=== PATIENT | male | born 1960 | race Caucasian/White ===

== ENCOUNTER 2024-11-11 17:11 | Emergency (ER) | payer MEDICAID, SELFPAY ==
[2024-11-11 17:13] VITALS: BP 171/89; BP 186/100; PULSE 75; RESP 18; TEMP 36.7; O2SAT 99; BMI 18.6
--- NOTE | 2024-11-11 17:57 | EDNOTE_ITS ---
ED Medical Clearance RME/HPI General Chief complaint: Medical Clearance Stated complaint: MEDICAL CLEARANCE Time Seen by Provider: 11/11/24 17:52 Arrival date/time: 11/11/24 17:11 RME / HPI RME / HPI Narrative: DR. CARRILLO MAIN ED EVALUATION: 64-year-old male with history of hypertension, methamphetamine and marijuana use presents to the Emergency Department for detention clearance by police for an abdominal hernia. Patient reports having a hernia for a couple years and has not been evaluated by a surgeon. He denies abdominal pain, nausea, or vomiting. Patient is homeless. Allergy to penicillins. Related Information Previous Rx's ?Medication ?Instructions ?Recorded lisinopril 10 mg tablet 10 mg PO QDAY #30 tabs 04/05 omeprazole 20 mg capsule,delayed 20 mg PO QDAY #20 cap s 06/26/22 release Allergies Allergy/AdvReac Type Severity Reaction Status Date / Time Penicillins Allergy Severe Swelling Verified 03/08/22 15:20 of Lip/Tongue/Throat Review of Systems Review of Systems Systems Reviewed: All systems reviewed, normal except as documented Past Medical History Past Medical History NEUROLOGIC: Positive Neurological Disorders CARDIAC: Positive Myocardial Infarction and Hypertension RESPIRATORY: Positive Chronic Obstructive Pulmonary Disease (COPD) and Asthma OTHER HISTORY: Positive Chicken Pox Surgical History SURGICAL: Positive Abdominal Surgery and Bowel Surgery Social History SMOKING STATUS: Current some day smoker SECOND HAND EXPOSURE: No SUBSTANCE USE: marijuana and methamphetamine 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 ED Exam Narrative Physical exam: GENERAL APPEARANCE: alert and oriented x 4, well-developed, well-nourished, no acute distress, sitting up with hands cuffed to the front VITALS: All vitals were reviewed and the pulse ox is 99% on room air, which is normal according to my interpretation. HEENT: Normocephalic, atraumatic; pupils equal, round, reactive to light; EOMI; mucous membranes pink, moist; oropharynx clear NECK: Supple LUNGS: CTABL; no wheezes, no rales, no rhonchi HEART: Regular rate, regular rhythm; normal S1, S2; no murmurs ABDOMEN: non distended; normal BS; soft, ventral hernia noted BACK: no CVA tenderness EXTREMITIES: atraumatic; no edema NEUROLOGIC: awake; alert and oriented x4; cranial nerves II-XII grossly intact; no focal sensory or motor deficits PSYCHIATRIC: appropriate mood and affect SKIN: warm, dry, normal color; no rashes Course Quality Measures none Vital Signs Vital signs: Vital Signs Temperature 98.0 F 11/11/24 17:13 Pulse Rate 75 11/11/24 17:13 Respiratory Rate 18 11/11/24 17:13 Blood Pressure 186/100 H 11/11/24 17:13 Pulse Oximetry (%) 99 11/11/24 17:13 Oxygen Delivery Method Room Air 11/11/24 17:13 Medical Clearance MDM Narrative MDM Narrative:: Sunita Camarena am scribing for and in the presence of Dr. Carrillo. Patient data External records reviewed:: [facility] previous records and EMS form Clinical information provided by:: patient, EMS and law enforcement Social determinants that could affect healthcare access:: substance use (Met hamphetamine, marijuana) Patient has the following chronic illnesses:: hypertension, methamphetamine and marijuana use How is presenting disease/condition affected by chronic disease/condition?: uneffected by Evaluation data The following diagnostics were reviewed and interpreted by me:: other (specify) (none) Lab and/or radiology exams considered but not ordered:: none Interpretation Summary: N/A Medications / Prescriptions Medications or Prescriptions considered but not ordered:: none Medication administrations:: see above if any Consultations Consultation(s) initiated? (list below): No Diagnosis Medical Clearance Differential Diagnosis: other (detention clearance, inguinal hernia, ventral hernia, incarcerated hernia) Most likely diagnosis given after review of the tests above:: Ventral hernia Medical clearance for incarceration Admission Indicated Admission indicated?: not indicated Admission Request Was there a request for admission?: No Disposition Plan Disposition Plan: Discharge (to detention) Discharge Attestation Discharge Attestation: The patient and all family members were given an opportunity to ask questions and understood the discharge instructions. Discharge instructions specifically effects, indications for sooner follow up or return to the emergency department, and the expected course of current diagnosis. Patient condition: Stable Discharge Plan Plan Patient Disposition: HOME (Self Care) Discharge Disposition comment: Okay to book Prescriptions/Referrals Prescriptions/Med Rec: No Action lisinopril 10 mg tablet 10 mg PO QDAY Qty: 30 0RF omeprazole 20 mg capsule,delayed release(DR/EC) 20 mg PO QDAY Qty: 20 0RF Referrals: Jolly,Ahmad, MD [Physician] - Problem List Clinical Impression: Ventral hernia, Medical clearance for incarceration Patient/Caregiver Discharge Instructions Education Materials: ED Hernia (Adult) Additional Instructions: May follow up electively with surgeon for evaluation and treatment. Call office for appointment. Print Language: Cuban Stand Alone Forms: Fani Award Info., Patient Portal Info Letter
== END 2024-11-11 18:09 | disposition home or self-care (01) ==
LOC: SERX 18:04
PROVIDERS: Emergency Provider Emergency Medicine
DX: Z02.89 Encounter for other administrative examinations (principal); K43.9 Ventral hernia without obstruction or gangrene
CPT/HCPCS: 99282

== ENCOUNTER 2025-01-14 04:10 | Inpatient (IN) | payer MEDICAID, SELFPAY ==
[2025-01-14] VITALS (22 sets, daily range): BP systolic 112–185; BP diastolic 65–103; PULSE 60–103; RESP 13–99; TEMP 36–37.5; O2SAT 90–100; BMI 16.7; BMI 17.4
--- NOTE | 2025-01-14 04:11 | EKG_ITS ---
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
--- NOTE | 2025-01-14 04:13 | PD.ASTHM ---
ED Asthma RME/HPI General Chief Complaint: Shortness of Breath/Dyspnea Stated Complaint: SOB Time Seen by Provider: 01/14/25 04:13 Arrival date/time: 01/14/25 04:10 RME / HPI RME / HPI Narrative: DR. STEELE MAIN ED EVALUATION: Patient with longstanding Hx of Asthma presents with progress diff breathing approximately 1-2 days notes preceding URI-like symptoms. No definite fever, chills, vomiting, or diarrhea. Patient became progressively dyspneic and contacted medics who transported patient for evaluation. O2 sats in the low 90th percentile range, although found to be in mild to moderate respiratory distress. Patient was administered breathing treatment en route with improvement and increased O2 sat to the high 90th percentile range. Patient also markedly hypertensive. PMH: Asthma, ? CHF, [place], HTN PSH: Non-contributory Allergies: Penicillins Social: Positive marijuana, methamphetamine, and tobacco use, Related Data Previous Rx's ?Medication ?Instructions ?Recorded lisinopril 10 mg tablet 10 mg PO QDAY #30 tabs 04/05/22 omeprazole 20 mg capsule,delayed 20 mg PO QDAY #20 caps 06/26/22 release Allergies Allergy/AdvReac Type Severity Reaction Status Date / Time Penicillins Allergy Severe Swelling Verified 03/08/22 15:20 of Lip/Tongue/Throat Review of Systems Review of Systems Systems Reviewed: All systems reviewed, normal except as documented Past Medical History Past Medical History CARDIAC: Positive Myocardial Infarction and Hypertension RESPIRATORY: Positive Chronic Obstructive Pulmonary Disease (COPD) and Asthma OTHER HISTORY: Positive Chicken Pox Surgical History SURGICAL: Positive Abdominal Surgery and Bowel Surgery Social History SMOKING STATUS: Current some day smoker SUBSTANCE USE: marijuana and methamphetamine ED Exam Narrative Physical exam: GEN. APPEARANCE: The patient is alert awake oriented X-3 in mild to moderate distress, lying down comfortably, chronically ill-appearing. Patient has good eye contact. Patient is cooperative. Notably hypertensive. VITALS: All vitals were reviewed and the pulse ox is 99% on room air which is normal according to my interpretation. HEENT: Normocephalic, atraumatic. Pupils are equal and reactive. Oral mucosa is moist. Patent Nares NECK: Supple, nontender, no thyromegaly, no meningismus, no JVD, no step offs CHEST: Symmetrical, atraumatic, and with equal expansion , Nontender on palpation no deformity and no crepitus. CARDIOVASCULAR: Heart regular rhythm no murmur or gallop rub or extra beats. LUNGS: Mild to moderate respiratory distress, diminished breath sounds, symmetrical chest rise. Scattered wheezing with accessory muscle use.No rales and no rhonchi. ABDOMEN: Soft, large, nontender to palpation, no guarding or rebound tenderness. There are no abnormal masses palpated. Active and normal bowel sounds. EXTREMITIES: Nontender. No edema. No cyanosis. Patient is able to move all 4 extremities well, with full ROM and good CSM. SKIN: Warm and dry, no jaundice or rashes noted. MUSCULOSKELETAL: No lubar or midline bony tenderness. There is no CVA tenderness. No paraspinal muscle spasm or tenderness. NEURO: Patient is MENDOZA x 4, Cranial nerves II through XII grossly intact. There is no focal neurologic deficits noted. GCS is 15, PNS and TELECOM BILLING ANALYST appear grossly intact. PSYCHIATRIC: Patient is in normal mood and affect, cooperative, no SI or HI or hallucinations. Course Quality Measures none Orders Category Date Time Status EKG (ED ONLY) *Do not use* NOW Care 01/14/25 04:12 Active EKG (ED Only) Stat Exams 01/14/25 04:11 Ordered Asthma MDM Narrative MDM Narrative:: Scribe Attestation: Melissa Camarena, am scribing for and in the presence of Dr. Steele. Provider Notation: Although this document has been carefully reviewed, there may still be some phonetic and other typographical errors. These errors are purely grammatical due to imperfections in the software program and should not be construed in any way to compromise the substance of the patient's medical care during this visit. Patient with longstanding Hx of Asthma presents with progress diff breathing approximately 1-2 days notes preceding URI-like symptoms. No definite fever, chills, vomiting, or diarrhea. Patient became progressively dyspneic and contacted medics who transported patient for evaluation. Please see PE findings. CXR demonstrates globular appearing heart, hyper-expanding lung ya, no infiltrate, effusion, or pneumothorax. Lab markers including cbc and serum chemistries essentially unremarkable. ABG without evidence of CO2 retention. Placed on color television console monitor, marked hypertensive with moderate respiratory distress. Administered nebulizer therapy in addition to IV steroids and magnesium with mild clinical improvement. Also received IV calcium channel ricardo with reduction in BP to acceptable limits. US demonstrates EF at 45-55% with poor collapse of IVC with diastolic CHF. On serial evaluation patient has improved although harsh scattered wheezes persist. Hospitalist consulted for admission. Final diagnoses include Acute exacerbation of COPD, Accelerated HTN. Patient data External records reviewed:: [facility] previous records (Reviewed prior ED records from 02/02/24. Patient was seen for Ventral hernia.) and EMS form Clinical information provided by:: patient and EMS Social determinants that could affect healthcare access:: substance use (Methamphetamine, Marijuana, Tobacco) Patient has the following chronic illnesses:: Hypertension, Chronic Obstructive Pulmonary Disease (COPD), Asthma, Recreational Drug use How is presenting disease/condition affected by chronic disease/condition?: exacerbated by Evaluation data The following diagnostics were reviewed and interpreted by me:: lab results, radiology exam(s) and EKG tracing(s) Lab and/or radiology exams considered but not ordered:: None Interpretation Summary: RADIOLOGY Chest X-Ray: Pending official radiology report. Medications / Prescriptions Medications or Prescriptions considered but not ordered:: None Medication administrations:: See above if any Consultations Consultation(s) initiated? (list below): No Diagnosis Differential diagnosis asthma: Acute exacerbation, Status asthmaticus, Acute asthmatic bronchitis, PE, Pneumonia, COPD exacerbation, Pulmonary edema systolic, Pulmonary edema dystolic, ARDS and Pneumothorax Most likely diagnosis given after review of the tests above:: Acute exacerbation of COPD, Accelerated HTN. Admission Indicated Admission indicated?: indicated Explain why admission is indicated or not indicated:: Acute exacerbation of COPD, Accelerated HTN. Admission Request Was there a request for admission?: Yes Admission Attestation Admission request attestation: Discussed case with [] from Hospitalist service regarding admission. Discussed patients ED course, exam findings, labs, and radiology results. The Hospitalist [agrees,declines] to accept the patient for admission. Disposition Plan Disposition Plan: Admit Critical Care Time Critical Care Time Critical Care Time: Yes Total Critical Care Time (min.): 45 Attestation: The high probability of sudden, clinically significant deterioration in the patient?s condition required the highest level of my preparedness to intervene urgently. The services I provided to this patient were to treat and/or prevent clinically significant deterioration. Services included the following: chart data review, reviewing nursing notes and/or old charts, documentation time, ent consultant collaboration regarding findings and treatment options, medication orders and management, direct patient care, vital sign assessments and ordering, interpreting and reviewing diagnostic studies and lab tests. Aggregate critical care time includes only time during which I was engaged in work directly related to the patient?s care, as described above, whether at bedside or elsewhere in the Emergency Department. It did not include time spent performing other reported procedures or the services of residents, students, nurses or physician assistants. Discharge Plan Plan Patient Disposition: Admit Acute Care w/in Hospital Prescriptions/Referrals Prescriptions/Med Rec: No Action lisinopril 10 mg tablet 10 mg PO QDAY Qty: 30 0RF omeprazole 20 mg capsule,delayed release(DR/EC) 20 mg PO QDAY Qty: 20 0RF Problem List Clinical Impression: COPD exacerbation, Accelerated hypertension Patient/Caregiver Discharge Instructions Print Language: Bulgarian Stand Alone Forms: Fani Award Info., Patient Portal Info Letter
--- NOTE | 2025-01-14 04:14 | XR_ITS ---
EXAMINATION: AP chest single view TECHNIQUE: AP portable upright chest single view Date and time: January 14, 2025, 0424 hours, comparison March 17, 2022 INDICATIONS: Shortness of breath today FINDINGS: Moderate hyperexpansion. Mitral valvular calcifications. Rounded left ventricle. Ectatic thoracic aorta. Accentuation of basilar bronchovascular markings. No pulmonary edema or lobar pneumonia IMPRESSION: COPD Basilar bronchitis pattern
[2025-01-14] MEDS: DEXAMETHASONE SOD PHOS INJ 10 MG/ML VIAL IV (04:39)
[2025-01-14] MEDS: SODIUM CHLORIDE 0.9% 1000 ML 1,000 ML 100 ML IV (04:39)
[2025-01-14] MEDS: Magnesium Sulfate 2 GM Ivpb 2 GM/50 ML BAG IV (04:39)
[2025-01-14] MEDS: DILTIAZEM INJ 5 MG/ML VIAL 5 ML IV (04:40)
[2025-01-14] MEDS: IPRATROPIUM RT 0.5 MG/ 2.5 ML NEBU 1 MG INH (04:52)
[2025-01-14] MEDS: ALBUTEROL RT 2.5 MG/0.5 ML NEBU 10 MG HHN (04:52)
[2025-01-14 05:03] LABS: Basophils # (Auto) 0.1 Thou/mm3 (0.0-0.2); Basophils % (Auto) 2 % (0-2.5); Eosinophils # (Auto) 0.2 Thou/mm3 (0.0-0.5); Eosinophils % (Auto) 2 % (0-10); Hematocrit 44.0 % (41.0-53.0); Hemoglobin 14.7 g/dL (13.5-16.0); Immature Granulocytes Auto 0.02 Thou/mm3 (0.00-0.00); Lymphocytes # (Auto) 1.2 Thou/mm3 (1.0-4.8); Lymphocytes % (Auto) 13 % (10-50); Mean Corpuscular HGB Conc 33.4 g/dl (31.0-37.0); Mean Corpuscular Hemoglobin 29.9 pg (25.0-35.0); Mean Corpuscular Volume 90 fL (80-100); Monocytes # (Auto) 0.6 Thou/mm3 (0.0-0.8); Monocytes % (Auto) 7 % (0-12); Neutrophils # (Auto) 6.6 Thou/mm3 (1.8-7.7); Neutrophils % (Auto) 76 % (37-80); Nucleated Red Blood Cell # 0.00 Thou/mm3 (0.00-0.00); Nucleated Red Blood Cell % 0 /100 WBC (0); Platelet Count 272 Thou/mm3 (140-440); RDW Standard Deviation 42.3 fL (35.1-43.9); Red Blood Count 4.91 Miln/mm3 (4.50-5.90); White Blood Count 8.7 Thou/mm3 (3.8-10.6)
[2025-01-14 05:04] LABS: Base Excess -2 (-3-3); HCO3 24 mEq/L (20-26); Inspired O2, VO2 Liters 8 L/min; Inspired Oxygen, FIO2 21 %; O2 Saturation 100 % (91-98); PCO2 43 mmHg (32.0-48.0); PO2 178 mmHg (83-108); pH, Arterial 7.36 (7.35-7.45)
[2025-01-14 05:08] LABS: Allen Test Not Performed; Puncture Site Femoral Artery
[2025-01-14 05:17] LABS: Influenza A Ag Negative; Influenza B Ag Negative
[2025-01-14 05:22] LABS: INR 1.0 (0.9-1.3); Partial Thromboplastin Time 36.7 Seconds (22.0-36.0); Prothrombin Time 11.0 Seconds (9.0-12.2)
[2025-01-14 05:26] LABS: Alanine Aminotransferase 12 U/L (10-49); Albumin, Serum 4.6 gm/dL (3.4-4.8); Albumin/Globulin Ratio 1.4 (1.2-2.2); Alkaline Phosphatase 92 U/L (46-116); Anion Gap 9 (7-16); Aspartate Amino Transferase 25 U/L (0-34); BUN/Creatinine Ratio 9 Ratio (12-20); Bilirubin,Total 0.7 mg/dL (0.3-1.2); Blood Urea Nitrogen 7 mg/dL (9-23); Calcium 9.3 mg/dL (8.3-10.6); Calcium (Corrected) 9.3 mg/dL (8.5-10.1); Carbon Dioxide 25.3 mMol/L (20.0-31.0); Chloride 106 mMol/L (98-107); Creatinine (Component) 0.8 mg/dL (0.6-1.3); Estimated Creatinine Clearance 66.7 mL/min (>60); Globulin 3.4 gm/dL (2.3-3.5); Glucose 121 mg/dL (74-106); Magnesium 2.0 mg/dL (1.6-2.6); Osmolality,Calculated 278 (275-295); Potassium 3.7 mMol/L (3.4-5.1); Sodium 140 mMol/L (136-145); Total Protein 8.0 gm/dL (5.7-8.2); eGFR > 60 See Note
[2025-01-14 05:29] LABS: B-Type Natriuretic Peptide 476 pg/mL (0-100)
--- NOTE | 2025-01-14 06:15 | ECHO_ITS ---
Transthoracic Echo Report Ht (in): 68 Wt (lb): 110 Exam Location: Echo Lab Status: Inpatient Wedding Transportation Driver: Giselle Pearson Indications: Procedure Performed: BP: 112 / 70 HR: 88 MEASUREMENTS (Male / Female) Normal Values 2D ECHO LV Diastolic Diameter PLAX 4.5 cm 4.2 - 5.9 / 3.9 - 5.3 cm LV Systolic Diameter PLAX 3.2 cm IVS Diastolic Thickness 1.1 cm 0.6 - 1.0 / 0.6 - 0.9 cm LVPW Diastolic Thickness 1.0 cm 0.6 - 1.0 / 0.6 - 0.9 cm LV Relative Wall Thickness 0.5 LVOT Diameter 1.6 cm LV Ejection Fraction MOD BP 50.8 % >= 55 % LV Cardiac Index MOD BP 3505.4 cm?/min?m? LV Ejection Fraction MOD 4C 54.0 % LV Cardiac Index MOD 4C 3539.9 cm?/min?m? LV Ejection Fraction 4C AL 55.6 % LV Cardiac Index 4C AL 3796.4 cm?/min?m? LV Ejection Fraction MOD 2C 49.3 % LV Cardiac Index MOD 2C 3430.7 cm?/min?m? LV Ejection Fraction 2C AL 49.7 % LV Cardiac Index 2C AL 3501.9 cm?/min?m? DOPPLER AV Peak Velocity 222.0 cm/s AV Peak Gradient 19.7 mmHg AV Mean Gradient 10.0 mmHg AV Velocity Time Integral 37.0 cm LVOT Peak Velocity 118.0 cm/s LVOT Peak Gradient 5.6 mmHg LVOT Velocity Time Integral 25.5 cm LVOT Cardiac Index 2946.3 cm?/min?m? AV Area Cont Eq vti 1.4 cm? AV Area Cont Eq pk 1.1 cm? LV E' Lateral Velocity 11.7 cm/s LV E' Septal Velocity 5.9 cm/s FINDINGS Left Ventricle Normal left ventricular size, wall thickness, systolic function with no obvious regional wall motion abnormalities. Mild LVH. The ejection fraction is visually estimated at 45-50 %. Right Ventricle The right ventricle is normal in size and systolic function. Left Atrium The left atrium is normal by two-dimensional, color flow and Doppler imaging with no structural abnormalities, no thrombus formation present. Right Atrium The right atrium is normal by two-dimensional imaging, color flow and Doppler imaging with no structural abnormalities, no thrombus formation present. Atrial Septum The interatrial septum appears normal with no evidence of a shunt. Aorta The aorta is normal by two-dimensional, color flow and Doppler interrogation. Mitral Valve The mitral valve is normal by two-dimensional, color flow and Doppler interrogation. Trace MR. Aortic Valve The aortic valve is trileaflet and normal by two-dimensional, color flow and Doppler interrogation. There is no significant aortic valve regurgitation. Tricuspid Valve The tricuspid valve is normal by two-dimensional, color flow and Doppler interrogation. Trace TR. Pulmonic Valve The pulmonic valve is not well visualized. There is no significant pulmonic valve regurgitation. Vessels Inferior vena cava not well visualized. Pericardium The pericardium is normal by two-dimensional imaging. There is no significant pericardial effusion. CONCLUSIONS Indication: H/O heart failure unable to obtain subcostal due to hernia. Normal LV size. Mild LVH. Estimated EF at 45-50 %. The RV is normal in size and systolic function. Trace MR and TR. Yo Khoury (Electronically Signed) Final Date: 16 January 2025 07:38
--- NOTE | 2025-01-14 06:19 | PD.RESHP ---
Documentation for date of: 01/14/25 [facility] History of Present Illness Chief complaint: Shortness of breath History of present illness: Mr Walter is a 64-year-old male with past medical history of COPD, hypertension, GERD, TIA, SBO status post ex lap and methamphetamine use/drug use who presented to [facility] ED on 01/14/2025 with a chief complaint of shortness of breath. Patient reported that his symptoms started approximately 1 to 2 days ago reported upper respiratory infection-like symptoms and eventually his shortness of breath continued to progressively worsen. Patient on presentation in the emergency department was significantly tachypneic and requiring supplemental oxygen. Patient otherwise denies any fevers chills diarrhea nausea vomiting bilateral lower extremity edema syncope near syncope and headache. Patient is homeless, admits to daily cigar use, methamphetamine use and marijuana use. ED Course: ED Vitals: On presentation in ED blood pressure 185/103, heart rate 84, respiratory rate 22, temp 96.8, O2 sat 99 on room air ED Labs: ED labs pertinent for CBC unremarkable, coags show APTT 36.7 INR PT normal, ABG shows pH 7.36, pCO2 43. CMP pertinent for glucose 121, BNP 476 otherwise unremarkable electrolytes within normal limits. Bedside COVID-negative, influenza AMB negative as well. ED Imaging: Chest x-ray in ED shows hyperinflation, COPD bibasilar bronchitis pattern EKG shows sinus rhythm ED Treatment:Patient was given maintenance fluid NS 100 cc/h, Decadron 10 mg, magnesium 2 g, diltiazem 5 mg, albuterol 10 mg, ipratropium 1 mg breathing treatment in emergency department Review of Systems Review of Systems Narrative Review of Systems: ROS: -CONSTITUTIONAL: Denies weight loss, fever and chills. -HEENT: Denies changes in vision and hearing. -RESPIRATORY: Positive for SOB and cough. -CV: Denies palpitations and Chest Pain. -GI: Denies abdominal pain, nausea, vomiting,constipation and diarrhea. Positive for abdominal hernia. -: Denies dysuria and urinary frequency. -MSK: Denies myalgia and joint pain. -SKIN: Denies rash and pruritus. -NEUROLOGICAL: Denies headache and syncope. -PSYCHIATRIC: Denies recent changes in mood. Denies anxiety and depression. Past Medical History Past Medical History CARDIAC: Positive Myocardial Infarction and Hypertension RESPIRATORY: Positive Chronic Obstructive Pulmonary Disease (COPD) and Asthma OTHER HISTORY: Positive Chicken Pox Surgical History SURGICAL: Positive Abdominal Surgery and Bowel Surgery Social History SMOKING STATUS: Current some day smoker SUBSTANCE USE: marijuana and methamphetamine Exam Vital Signs Temp Pulse Resp BP Pulse Ox O2 Del Method 96.8 F 63 14 148/72 H 99 Oxy Mask 01/14/25 04:30 01/14/25 05:33 01/14/25 05:33 01/14/25 05:33 01/14/25 05:33 01/14/25 05:33 Narrative Exam Physical Exam General: Awake and in moderate acute distress. Conversational, does get short of breath unable to complete sentences and non-toxic appearing. HEENT: Normocephalic, atraumatic, mucous membranes moist. On 6 L nasal cannula Heart: Regular rate and rhythm, no murmurs. Lungs: Bilateral wheezing Abdomen: Soft, nondistended, nontender, positive bowel sounds. ?No guarding or rebound tenderness. Hernia noted Neurologic: Alert and oriented x3, no gross neurological deficit, and patient able to move all 4 extremities. Extremities: No edema. Skin: No rash or ecchymoses. Results: Labs 01/14/25 04:25 01/14/25 04:25 Labs: Short CBC 01/14/25 Range/Units 04:25 WBC 8.7 (3.8-10.6) Thou/mm3 Hgb 14.7 (13.5-16.0) g/dL Hct 44.0 (41.0-53.0) % Plt Count 272 (140-440) Thou/mm3 BMP 01/14/25 04:25 Sodium 140 Potassium 3.7 Chloride 106 Carbon Dioxide 25.3 BUN 7 L Creatinine 0.8 Glucose 121 H Calcium 9.3 Liver Function 01/14/25 Range/Units 04:25 Total Bilirubin 0.7 (0.3-1.2) mg/dL AST 25 (0-34) U/L ALT 12 (10-49) U/L Alkaline Phosphatase 92 (46-116) U/L Albumin 4.6 (3.4-4.8) gm/dL ABG Interpretation ABG results: 01/14/25 04:50 ABG pH 7.36 ABG pCO2 43 ABG pO2 178 H ABG HCO3 24 ABG O2 Saturation 100 H ABG Base Excess -2 Quality Measures Quality Measures none Medications Home Medications and Allergies Allergies Allergy/AdvReac Type Severity Reaction Status Date / Time Penicillins Allergy Severe Swelling Verified 03/08/22 15:20 of Lip/Tongue/Throat Visit Medications Acetaminophen (Acetaminophen 325 Mg Tablet) 650 mg PO Q6H PRN PRN Reason: Fever >100.4 and Pain (1-3) Stop: 02/13/25 06:06 Albuterol/Ipratropium (Albuterol/Ipratropium (Duoneb) Rt Shameka 3 Ml Nebu) 3 ml INH Q4HRRT MELI Stop: 02/13/25 06:59 Albuterol/Ipratropium (Albuterol/Ipratropium (Duoneb) Rt Shameka 3 Ml Nebu) 3 ml INH Q2HR PRN PRN Reason: SHORTNESS OF BREATH OR WHEEZE Stop: 02/13/25 06:06 Guaifenesin (Guaifenesin Syrup 200 Mg/10 Ml Udc) 200 mg PO QID PRN; Protocol PRN Reason: COUGH OR CONGESTION Stop: 02/13/25 06:13 Heparin Sodium (Porcine) (Heparin Sod Inj 5000 Unit/Ml Vial) 5,000 unit SC Q12HR MELI Stop: 01/28/25 08:59 Azithromycin 500 mg/ Sodium (Chloride) 250 mls @ 250 mls/hr IV QDAY MELI Stop: 01/17/25 06:12 Ipratropium [place] (Ipratropium Rt 0.5 Mg/ 2.5 Ml Nebu) mg INH X1 ONE Stop: 01/14/25 04:15 Methylprednisolone Sodium Succinate (Methylprednisolone Sod Succ 40 Mg/Ml Vial) 40 mg IVP QDAY MELI Stop: 01/21/25 08:59 Ondansetron HCl (Ondansetron Inj 2 Mg/Ml Inj 2 Ml) 4 mg IVP Q6H PRN; Protocol PRN Reason: NAUSEA OR VOMITING Stop: 02/13/25 06:06 Pantoprazole Sodium (Pantoprazole Inj 40 Mg Vial) 40 mg IVP QDAY MELI Stop: 02/13/25 08:59 Sennosides (Senna Tablet) 1 tab PO QDAY PRN; Protocol PRN Reason: constipation Stop: 02/13/25 06:06 Sodium Chloride (Sodium Chloride Rt Shameka 0.9% 3 Ml Nebu) 3 ml INH PRN PRN PRN Reason: SOLN Stop: 02/13/25 04:23 Discontinued Medications Albuterol (Albuterol Rt 2.5 Mg/0.5 Ml Nebu) 10 mg HHN X1 ONE Stop: 01/14/25 04:20 Last Admin: 01/14/25 04:52 Dose: 10 mg Albuterol (Albuterol Rt 2.5 Mg/0.5 Ml Nebu) 10 mg INH X1 ONE Stop: 01/14/25 04:25 Last Admin: 01/14/25 04:54 Dose: Not Given Dexamethasone Sodium Phosphate (Dexamethasone Sod Phos Inj 10 Mg/Ml Vial) 10 mg IV X1 ONE Stop: 01/14/25 04:15 Last Admin: 01/14/25 04:39 Dose: 10 mg Diltiazem HCl (Diltiazem Inj 5 Mg/Ml Vial 5 Ml) 5 mg IV X1 ONE Stop: 01/14/25 04:24 Last Admin: 01/14/25 04:40 Dose: 5 mg Sodium Chloride (Ns) 1,000 mls @ 100 mls/hr IV .Q10H ONE Stop: 01/14/25 14:13 Last Admin: 01/14/25 04:39 Dose: 100 mls/hr Magnesium Sulfate (Magnesium Sulfate Ivpb) 2 gm in 50 mls @ 25 mls/hr IV X1 ONE Stop: 01/14/25 06:17 Last Admin: 01/14/25 04:39 Dose: 25 mls/hr Ipratropium [place] (Ipratropium Rt 0.5 Mg/ 2.5 Ml Nebu) 1 mg INH X1 ONE Stop: 01/14/25 04:25 Last Admin: 01/14/25 04:52 Dose: 1 mg Sodium Chloride (Sodium Chloride Rt Shameka 0.9% 3 Ml Nebu) 3 ml INH PRN PRN PRN Reason: SOLN Stop: 02/13/25 04:13 Sodium Chloride (Sodium Chloride Rt 10% 15 Ml Nebu) 5 ml INH X1 ONE Stop: 01/14/25 06:08 Assessment & Plan Plan Assessment and plan: Summary: Mr Walter is a 64-year-old male with past medical history of COPD, hypertension, GERD, TIA, SBO status post ex lap and methamphetamine use/drug use who presented to [facility] ED on 01/14/2025 with a chief complaint of shortness of breath. Patient admitted for COPD exacerbation management. #COPD exacerbation #COPD #Chronic active smoker Past medical history of COPD, homeless noncompliant with medication, presented with flulike illness increased cough and sputum production not on oxygen at baseline. Chest x-ray negative for any evidence of pneumonia, does show hyperinflation, COPD pattern. Plan: - DuoNebs every 4 hours, DuoNebs every 2 hours as needed - Solu-Medrol 40 mg daily IV - IV azithromycin 500 mg for 3 days - Guaifenesin as needed - Chest physiotherapy - Ordered sputum culture, MRSA nasal screen - Supplemental oxygen as needed - Smoking cessation education #Heart failure with moderately reduced ejection fraction, EF 45 to 50%, 03/2022 Patient has history of heart failure per chart review, currently not in any acute exacerbation. BNP 476 Echo 03/2022 positive PFO seen with agitated saline, but not with color doppler. Normal LV size and function. Estimated EF is 45-50%. Normal RV size and function. Moderate AI with an eccentric jet directed towards anterior MVL. Mild AV calcifcation. Mild TR. No LA/LATRICE thrombus seen. - Strict intake and output, daily weight, fluid restriction 1800 cc - Ordered echocardiogram #Abdominal ventral hernia History of high-grade mechanical SBO status post ex lap, has chronic abdominal ventral hernia. - Continue to monitor #Substance use disorder #Methamphetamine dependence #THC dependence Patient has history of substance use disorder, admits to daily methamphetamine and THC use. Denies any alcohol and opioid use. Urine tox cream is pending - Monitor for withdrawal #Hypertension #History of TIA Patient has history of hypertension and TIA, denies taking any medication currently. Continue to monitor DVT prophylaxis: Heparin SQ every 12 GI prophylaxis: IV Protonix Diet: Cardiac, fluid restriction 1500 cc Lines: Peripheral IV Code status: Full code Case discussed with Attending Physician Dr. Surya Theodore MD Internal Medicine PGY-2 Disclaimer: This note was dictated by speech recognition. Minor errors in fixture fabricator repairer may be present due to voice recognition software. Attending Provider Attestation/Addendum Jesica Camarena DO, attest that I was physically present for the moore portions of the service and evaluated the patient with the resident and I reviewed and discussed the case with the resident and agree with the resident's findings and plans of care as documented above Patient is a 64 yo homeless male with Pmhx of COPD, polysubstance abuse, chronic tobacco use, SBO s/p exlap and partial small bowel obstruction with anastomosis, TIA, HTN who presented to the ED for progressively worsening shortness of breath for the past few days. He also endorses having flu like symptoms that began about 2 days ago with subjective fever, increased cough and productive sputum. He does not wear O2 at baseline. Patient states he does not take any medications due to loss to follow up. CXR was done in ED, diaphragm appears flat, ectatic thoracic aorta, no infiltrates noted. On exam, diffuse wheezing and rhonchi noted in all lung ya. Ventral hernia noted, soft and nontender. No peripheral edema noted on exam. Patient is in no acute distress. Patient has received antibiotics, breathing treatments and Cardizem. Flu and covid swabs are negative. Due to labored breathing, decision was made to admit patient to tele for acute COPD exacerbation. Will start on IV steroids, breathing treatments and empiric abx. Patient reports last use of methamphetamine was yesterday.
[2025-01-14] MEDS: AZITHROMYCIN INJ 500 MG in SODIUM CHLORIDE 0.9% 250 ML 250 ML 250 MG IV (06:37)
[2025-01-14] MEDS: ALBUTEROL/IPRATROPIUM (Duoneb) RT SOL 3 ML NEBU INH ×5 (06:54→22:33)
[2025-01-14] MEDS: HEPARIN SOD INJ 5000 UNIT/ML VIAL SC ×2 (08:53→22:12)
[2025-01-14] MEDS: POTASSIUM CHLORIDE 10% 20 MEQ/15 ML UDC PO (08:53)
[2025-01-14 12:29] LABS: Collection Type, Urine Clean Catch; Squamous Epithelial Cell,Urine 0 /hpf (0-5)
--- NOTE | 2025-01-14 12:38 | ESPR_ITS ---
<Statement entered by Rossana Pichardo MD - 01/27/25 17:16> I reviewed above note and agree with findings and plans. I have also personally examined the patient with medicine team and went over assessment and plan with medical team including internal audit manager and resident physician. Documentation for date of: 01/14/25 Overnight admission, patient is a 64 year old male with a past medical history of polysubstance use disorder including THC and meth per patient history who was recently been released from care home. Patient was admitted for COPD exacerbation and started on Duonebs. COPD exacerbation likely secondary to medicatio non compliance and continued smoking of marijuana. Utox positive for meth and THC. Given polysubstance use disorder, follow up with hepatitis panel. Previous echo noted ejection fraction of 50-55% (03/2022), low suspicion for congestive heart failure no clinical signs and does not appear fluid overloaded. Plan to discharge within the next 24 hours. - The patient's plan was discussed with attending Dr. timothy Dutta MD PGY2 Internal Medicine Subjective Subjective Interval history: Patient was examined at bedside; he appears A&Ox4 and in NAD. On exam, wheezing was auscultated on bilateral anterior lung ya. Vitals/labs today significant for BP 160/65, RR 20, SpO2 95% on 3 L NC, and BNP 476. ABG was unconcerning. Patient endorses using methamphetamines yesterday as well as chronic marijuana use which was verified on UDS. Patient appears clinically stable without overt respiratory distress. Plan Updates: -Started PO amlodipine 5 mg qD -Ordered hepatitis panel -Ordered urine alcohol level Exam Vital Signs Temp Pulse Resp BP Pulse Ox O2 Del Method O2 Flow Rate 97.2 F 70 16 143/79 H 99 Nasal Cannula 3 01/14/25 08:32 01/14/25 11:06 01/14/25 11:06 01/14/25 08:53 01/14/25 11:06 01/14/25 08:32 01/14/25 11:06 Narrative Exam General: A&Ox4 and in NAD. HEENT: Normocephalic, atraumatic, mucous membranes moist. On 3 L nasal cannula Heart: Regular rate and rhythm, no murmurs. Lungs: Bilateral wheezing auscultated on anterior lung ya. No crackles or rhonchi appreciated. No accessory muscle use. Abdomen: Soft, nondistended, nontender, positive bowel sounds. ?No guarding or rebound tenderness. Hernia noted Extremities: No lower extremity edema, cyanosis, or mottling noted. DP pulses 2+ bilaterally. Skin: No rash or ecchymoses. Objective Labs 01/15/25 04:49 01/15/25 04:49 Labs: Laboratory Results - last 24 hr 01/14/25 01/14/25 04:25 04:50 WBC 8.7 RBC 4.91 Hgb 14.7 Hct 44.0 MCV 90 MCH 29.9 MCHC 33.4 RDW Std Deviation 42.3 Plt Count 272 Neut % (Auto) 76 Lymph % (Auto) 13 [place] % (Auto) 7 Eos % (Auto) 2 Baso % (Auto) 2 Neut # (Auto) 6.6 Lymph # (Auto) 1.2 [place] # (Auto) 0.6 Eos # (Auto) 0.2 Baso # (Auto) 0.1 Immature Gran # (Auto) 0.02 H Absolute Nucleated RBC 0.00 Immature Gran % 0 Nucleated RBC % 0 PT 11.0 INR 1.0 APTT 36.7 H Puncture Site Femoral Artery ABG pH 7.36 ABG pCO2 43 ABG pO2 178 H ABG HCO3 24 ABG O2 Saturation 100 H ABG Base Excess -2 Oxygen Liter Flow 8 FiO2 21 Sodium 140 Potassium 3.7 Chloride 106 Carbon Dioxide 25.3 Anion Gap 9 BUN 7 L Creatinine 0.8 Estim Creat Clear Calc 66.7 eGFR > 60 BUN/Creatinine Ratio 9 L Glucose 121 H Calculated Osmolality 278 Calcium 9.3 Corrected Calcium 9.3 Magnesium 2.0 Total Bilirubin 0.7 AST 25 ALT 12 Alkaline Phosphatase 92 B-Natriuretic Peptide 476 H* Total Protein 8.0 Albumin 4.6 Globulin 3.4 Albumin/Globulin Ratio 1.4 Influenza A (Rapid) Negative Influenza B (Rapid) Negative ABG Interpretation ABG results: 01/14/25 04:50 ABG pH 7.36 ABG pCO2 43 ABG pO2 178 H ABG HCO3 24 ABG O2 Saturation 100 H ABG Base Excess -2 Quality Measures Quality Measures none Assessment & Plan Assessment Current Active Medications: Generic Name Dose Route Start Last Admin Trade Name Freq PRN Reason Stop Dose Admin Acetaminophen 650 mg 01/14/25 06:07 Acetaminophen 325 Mg Tablet PO 02/13/25 06:06 Q6H PRN Fever >100.4 and Pain (1-3) Albuterol/Ipratropium 3 ml 01/14/25 07:00 01/14/25 11:03 Albuterol/Ipratropium (Duoneb) Rt Shameka 3 Ml Nebu INH 02/13/25 06:59 3 ml Q4HRRT MELI Administration Albuterol/Ipratropium 3 ml 01/14/25 06:07 Albuterol/Ipratropium (Duoneb) Rt Shameka 3 Ml Nebu INH 02/13/25 06:06 Q2HR PRN SHORTNESS OF BREATH OR WHEEZE Amlodipine Besylate 5 mg 01/14/25 09:00 01/14/25 08:53 Amlodipine Besylate 5 Mg Tablet PO 02/13/25 08:59 5 mg QDAY MELI Administration Guaifenesin 200 mg 01/14/25 06:14 Guaifenesin Syrup 200 Mg/10 Ml Udc PO 02/13/25 06:13 QID PRN COUGH OR CONGESTION Protocol Heparin Sodium (Porcine) 5,000 unit 01/14/25 09:00 01/14/25 08:53 Heparin Sod Inj 5000 Unit/Ml Vial SC 01/28/25 08:59 5,000 unit Q12HR MELI Administration Azithromycin 500 mg/ Sodium 250 mls @ 250 mls/hr 01/15/25 09:00 Chloride IV 01/17/25 08:59 QDAY MELI Methylprednisolone Sodium Succinate 40 mg 01/14/25 09:00 01/14/25 08:53 Methylprednisolone Sod Succ 40 Mg/Ml Vial IVP 01/21/25 08:59 40 mg QDAY MELI Administration Ondansetron HCl 4 mg 01/14/25 06:07 Ondansetron Inj 2 Mg/Ml Inj 2 Ml IVP 02/13/25 06:06 Q6H PRN NAUSEA OR VOMITING Protocol Pantoprazole Sodium 40 mg 01/14/25 09:00 01/14/25 08:53 Pantoprazole Inj 40 Mg Vial IVP 02/13/25 08:59 40 mg QDAY MELI Administration Sennosides 1 tab 01/14/25 06:07 Senna Tablet PO 02/13/25 06:06 QDAY PRN constipation Protocol Sodium Chloride 3 ml 01/14/25 04:24 Sodium Chloride Rt Shameka 0.9% 3 Ml Nebu INH 02/13/25 04:23 PRN PRN SOLN Plan Mr Walter is a 64-year-old male with past medical history of COPD, hypertension, GERD, TIA, SBO status post ex lap and methamphetamine use/drug use who presented to [facility] ED on 01/14/2025 with a chief complaint of shortness of breath. Patient admitted for COPD exacerbation management. #COPD exacerbation #COPD #Chronic active smoker Past medical history of COPD, homeless noncompliant with medication, presented with flu-like illness increased cough and sputum production not on oxygen at baseline. On exam, wheezing was auscultated on bilateral anterior lung ya Chest x-ray negative for any evidence of pneumonia, does show hyperinflation, COPD pattern. Smoking history of 1.5 pack/day for 40 years and 3-4 cigars for 10 years (ongoing) Plan: - DuoNebs every 4 hours, DuoNebs every 2 hours as needed - Solu-Medrol 40 mg daily IV - IV azithromycin 500 mg for 3 days - Guaifenesin as needed - Chest physiotherapy - Follow up on sputum culture, MRSA nasal screen - Supplemental oxygen as needed - Smoking cessation education #Heart failure with moderately reduced ejection fraction, EF 45 to 50%, 03/2022 Patient has history of heart failure per chart review, currently not in any acute exacerbation. BNP 476 Echo 03/2022 positive PFO seen with agitated saline, but not with color doppler. Normal LV size and function. Estimated EF is 45-50%. Normal RV size and function. Moderate AI with an eccentric jet directed towards anterior MVL. Mild AV calcifcation. Mild TR. No LA/LATRICE thrombus seen. Plan: - Strict intake and output, daily weight, fluid restriction 1800 cc - Follow up on echocardiogram #Abdominal ventral hernia History of high-grade mechanical SBO status post ex lap, has chronic abdominal ventral hernia. Rx: - Continue to monitor #Substance use disorder #Methamphetamine dependence #THC dependence Patient has history of substance use disorder, admits to daily methamphetamine and THC use. Denies any alcohol and opioid use. UDS (+) for methamphetamine and marijuana Rx: -Ordered urine ethanol level -Monitor for withdrawal #Hypertension #History of TIA Patient has history of hypertension and TIA, denies taking any medication currently. Continue to monitor DVT prophylaxis: Heparin SQ every 12 GI prophylaxis: IV Protonix Diet: Cardiac, fluid restriction 1500 cc Lines: Peripheral IV Code status: Full code Case discussed with Attending Physician Dr. Pichardo and senior resident Dr. Luzmaria Denise, DO Internal Medicine, PGY-1
[2025-01-14 12:47] LABS: Amphetamine/Methamp Scrn,U Positive (Negative); Barbiturate Screen,Urine Negative (Negative); Benzodiazepines Screen,Urine Negative (Negative); Benzoylecgonine Screen, Ur Negative (Negative); Fentanyl Screen,Urine Negative (Negative); Opiate Screen,Urine Negative (Negative); THC Screen,Urine Positive (Negative)
[2025-01-14 12:51] LABS: Bilirubin,Urine Negative (Negative); Blood,Urine Negative (Negative); Clarity,Urine Clear (Clear/Hazy); Color,Urine Lt-Yellow (Lt Yel-Yel); Culture Indicated,Urine Not Indicated; Glucose, Urine Negative (Negative); Ketones,Urine 1+ (Negative); Leukocyte Esterase,Urine Negative (Negative); Nitrite,Urine Negative (Negative); PH,Urine 5.5 (5.0-7.0); Protein,Urine Negative (Neg - Trace); RBC,Urine 1 /hpf (0-3); Specific Gravity,Urine 1.019 (1.001-1.035); Urobilinogen,Urine Negative mg/dL (0.0-1.0); WBC,Urine 1 /hpf (0-5)
[2025-01-14 14:26] LABS: Alcohol, Urine Negative (Negative)
[2025-01-15] VITALS (12 sets, daily range): BP systolic 122–159; BP diastolic 73–109; PULSE 68–103; RESP 14–94; TEMP 36.8; O2SAT 93–99
[2025-01-15] MEDS: ALBUTEROL/IPRATROPIUM (Duoneb) RT SOL 3 ML NEBU INH ×5 (02:47→22:27)
[2025-01-15 05:49] LABS: Basophils # (Auto) 0.1 Thou/mm3 (0.0-0.2); Basophils % (Auto) 1 % (0-2.5); Eosinophils # (Auto) 0.2 Thou/mm3 (0.0-0.5); Eosinophils % (Auto) 3 % (0-10); Hematocrit 38.2 % (41.0-53.0); Hemoglobin 12.8 g/dL (13.5-16.0); Immature Granulocytes Auto 0.02 Thou/mm3 (0.00-0.00); Lymphocytes # (Auto) 1.4 Thou/mm3 (1.0-4.8); Lymphocytes % (Auto) 19 % (10-50); Mean Corpuscular HGB Conc 33.5 g/dl (31.0-37.0); Mean Corpuscular Hemoglobin 29.5 pg (25.0-35.0); Mean Corpuscular Volume 88 fL (80-100); Monocytes # (Auto) 0.6 Thou/mm3 (0.0-0.8); Monocytes % (Auto) 8 % (0-12); Neutrophils # (Auto) 5.2 Thou/mm3 (1.8-7.7); Neutrophils % (Auto) 69 % (37-80); Nucleated Red Blood Cell # 0.00 Thou/mm3 (0.00-0.00); Nucleated Red Blood Cell % 0 /100 WBC (0); Platelet Count 249 Thou/mm3 (140-440); RDW Standard Deviation 42.1 fL (35.1-43.9); Red Blood Count 4.34 Miln/mm3 (4.50-5.90); White Blood Count 7.6 Thou/mm3 (3.8-10.6)
[2025-01-15 06:07] LABS: INR 1.0 (0.9-1.3); Partial Thromboplastin Time 31.5 Seconds (22.0-36.0); Prothrombin Time 10.8 Seconds (9.0-12.2)
[2025-01-15 06:37] LABS: Alanine Aminotransferase 9 U/L (10-49); Albumin, Serum 3.6 gm/dL (3.4-4.8); Albumin/Globulin Ratio 1.4 (1.2-2.2); Alkaline Phosphatase 72 U/L (46-116); Anion Gap 12 (7-16); Aspartate Amino Transferase 17 U/L (0-34); BUN/Creatinine Ratio 14 Ratio (12-20); Bilirubin,Total 0.6 mg/dL (0.3-1.2); Blood Urea Nitrogen 11 mg/dL (9-23); Calcium 8.4 mg/dL (8.3-10.6); Calcium (Corrected) 8.7 mg/dL (8.5-10.1); Carbon Dioxide 24.3 mMol/L (20.0-31.0); Chloride 107 mMol/L (98-107); Creatinine (Component) 0.8 mg/dL (0.6-1.3); Estimated Creatinine Clearance 69.4 mL/min (>60); Globulin 2.5 gm/dL (2.3-3.5); Glucose 99 mg/dL (74-106); Magnesium 2.2 mg/dL (1.6-2.6); Osmolality,Calculated 284 (275-295); Phosphorous 2.9 mg/dL (2.4-5.1); Potassium 3.5 mMol/L (3.4-5.1); Sodium 143 mMol/L (136-145); Total Protein 6.1 gm/dL (5.7-8.2); eGFR > 60 See Note
[2025-01-15] MEDS: AZITHROMYCIN INJ 500 MG in SODIUM CHLORIDE 0.9% 250 ML 250 ML 250 MG IV (09:05)
[2025-01-15] MEDS: HEPARIN SOD INJ 5000 UNIT/ML VIAL SC ×2 (09:05→20:57)
[2025-01-15 11:49] LABS: HIV (1&2) Antibody Rapid Non-Reactive
--- NOTE | 2025-01-15 11:57 | ESPR_ITS ---
<Statement entered by Rossana Pichardo MD - 01/27/25 17:18> I reviewed above note and agree with findings and plans. I have also personally examined the patient with medicine team and went over assessment and plan with medical team including international relations professor and resident physician. <Statement entered by Wilfred Webber MD - 01/16/25 05:34> I saw and examined patient personally and supervised PGY 1 resident, Dr. Denise with formulating a management plan. I agree with the documentation with the exceptions as listed below. Patient COPD exacerbation currently improving. Shortness of breath and cough much less than yesterday. Patient was saturating 96/98% on room air. Continues to be on DuoNebs Q4 hourly and Methylpred 40 mg IV daily. Expected discharge within next 24 hours. Plan of care discussed with Attending Dr. Kylee Webber MD PGY 2 Disclaimer: This note was dictated by speech recognition. Minor errors in lap cutter truer operator may be present due to voice recognition software. Documentation for date of: 01/15/25 Subjective Subjective Interval history: No overnight events. Patient was examined at bedside; he appears A&Ox4 and in NAD. Labs today were unremarkable. Patient complains of a new productive cough that began yesterday. He also complains that he has not had a BM in a few days. On exam, expiratory wheezing was appreciated on bilateral anterior lung ya. However, patient appears overall clinically improved and is scheduled to be discharged tomorrow. Exam Vital Signs Temp Pulse Resp BP Pulse Ox O2 Del Method O2 Flow Rate 98.5 F 70 16 159/109 H 95 Nasal Cannula 3 01/14/25 20:00 01/15/25 09:07 01/15/25 06:33 01/15/25 09:07 01/15/25 06:33 01/14/25 20:00 01/14/25 20:00 Narrative Exam General: A&Ox4 and in NAD. HEENT: Normocephalic, atraumatic, mucous membranes moist. On 3 L nasal cannula Heart: Regular rate and rhythm, no murmurs. Lungs: Bilateral wheezing auscultated on anterior lung ya. No crackles or rhonchi appreciated. No accessory muscle use. Abdomen: Large, bulbous ventral hernia noted over umbilicus. Soft, nondistended, nontender, positive bowel sounds. ?No guarding or rebound tenderness. Extremities: No lower extremity edema, cyanosis, or mottling noted. DP pulses 2+ bilaterally. Skin: No rash or ecchymoses. Objective Labs 01/15/25 04:49 01/15/25 04:49 Labs: Laboratory Results - last 24 hr 01/14/25 01/14/25 01/15/25 10:02 10:31 04:49 WBC 7.6 RBC 4.34 L Hgb 12.8 L Hct 38.2 L MCV 88 MCH 29.5 MCHC 33.5 RDW Std Deviation 42.1 Plt Count 249 Neut % (Auto) 69 Lymph % (Auto) 19 [place] % (Auto) 8 Eos % (Auto) 3 Baso % (Auto) 1 Neut # (Auto) 5.2 Lymph # (Auto) 1.4 [place] # (Auto) 0.6 Eos # (Auto) 0.2 Baso # (Auto) 0.1 Immature Gran # (Auto) 0.02 H Absolute Nucleated RBC 0.00 Immature Gran % 0 Nucleated RBC % 0 PT 10.8 INR 1.0 APTT 31.5 Sodium 143 Potassium 3.5 Chloride 107 Carbon Dioxide 24.3 Anion Gap 12 BUN 11 Creatinine 0.8 Estim Creat Clear Calc 69.4 eGFR > 60 BUN/Creatinine Ratio 14 Glucose 99 Calculated Osmolality 284 Calcium 8.4 Corrected Calcium 8.7 Phosphorus 2.9 Magnesium 2.2 Total Bilirubin 0.6 AST 17 ALT 9 L Alkaline Phosphatase 72 D Total Protein 6.1 Albumin 3.6 D Globulin 2.5 Albumin/Globulin Ratio 1.4 Ur Collection Type Clean Catch Urine Color Lt-Yellow Urine Clarity Clear Urine pH 5.5 Ur Specific [place] 1.019 Urine Protein Negative Urine Glucose (UA) Negative Urine Ketones 1+ A Urine Blood Negative Urine Nitrite Negative Urine Bilirubin Negative Urine Urobilinogen (Auto) Negative Ur Leukocyte Esterase Negative Urine RBC 1 Urine WBC 1 Ur Squamous Epith Cells 0 Urine Bacteria None Ur Culture Indicated? Not Indicated Urine Opiates Screen Negative Urine Fentanyl Screen Negative Ur Barbiturates Screen Negative U Amphetamin/Meth Scrn Positive A U Benzodiazepines Scrn Negative U Cocaine Metab Screen Negative U Marijuana (THC) Screen Positive A Urine Alcohol Negative HIV 1&2 Antibody Rapid Non-Reactive ABG Interpretation ABG results: 01/14/25 04:50 ABG pH 7.36 ABG pCO2 43 ABG pO2 178 H ABG HCO3 24 ABG O2 Saturation 100 H ABG Base Excess -2 Quality Measures Quality Measures none Assessment & Plan Assessment Current Active Medications: Generic Name Dose Route Start Last Admin Trade Name Freq PRN Reason Stop Dose Admin Acetaminophen 650 mg 01/14/25 06:07 Acetaminophen 325 Mg Tablet PO 02/13/25 06:06 Q6H PRN Fever >100.4 and Pain (1-3) Albuterol/Ipratropium 3 ml 01/14/25 07:00 01/15/25 06:33 Albuterol/Ipratropium (Duoneb) Rt Shameka 3 Ml Nebu INH 02/13/25 06:59 3 ml Q4HRRT MELI Administration Albuterol/Ipratropium 3 ml 01/14/25 06:07 Albuterol/Ipratropium (Duoneb) Rt Shameka 3 Ml Nebu INH 02/13/25 06:06 Q2HR PRN SHORTNESS OF BREATH OR WHEEZE Amlodipine Besylate 5 mg 01/14/25 09:00 01/15/25 09:07 Amlodipine Besylate 5 Mg Tablet PO 02/13/25 08:59 5 mg QDAY MELI Administration Guaifenesin 200 mg 01/14/25 06:14 Guaifenesin Syrup 200 Mg/10 Ml Udc PO 02/13/25 06:13 QID PRN COUGH OR CONGESTION Protocol Heparin Sodium (Porcine) 5,000 unit 01/14/25 09:00 01/15/25 09:05 Heparin Sod Inj 5000 Unit/Ml Vial SC 01/28/25 08:59 5,000 unit Q12HR MELI Administration Azithromycin 500 mg/ Sodium 250 mls @ 250 mls/hr 01/15/25 09:00 01/15/25 09:05 Chloride IV 01/17/25 08:59 250 mls/hr QDAY MELI Administration Methylprednisolone Sodium Succinate 40 mg 01/16/25 09:00 Methylprednisolone Sod Succ 40 Mg/Ml Vial IVP 01/23/25 08:59 QDAY MELI Ondansetron HCl 4 mg 01/14/25 06:07 Ondansetron Inj 2 Mg/Ml Inj 2 Ml IVP 02/13/25 06:06 Q6H PRN NAUSEA OR VOMITING Protocol Pantoprazole Sodium 40 mg 01/14/25 09:00 01/15/25 09:06 Pantoprazole Inj 40 Mg Vial IVP 02/13/25 08:59 40 mg QDAY MELI Administration Sennosides 1 tab 01/15/25 09:00 01/15/25 09:07 Senna Tablet PO 02/14/25 08:59 1 tab QDAY MELI Administration Protocol Sodium Chloride 3 ml 01/14/25 04:24 Sodium Chloride Rt Shameka 0.9% 3 Ml Nebu INH 02/13/25 04:23 PRN PRN SOLN Plan Mr Walter is a 64-year-old male with past medical history of COPD, hypertension, GERD, TIA, SBO status post ex lap and methamphetamine use/drug use who presented to [facility] ED on 01/14/2025 with a chief complaint of shortness of breath. Patient admitted for COPD exacerbation management. #COPD exacerbation #COPD #Chronic active smoker Past medical history of COPD, homeless noncompliant with medication, presented with flu-like illness increased cough and sputum production not on oxygen at baseline. On exam, wheezing was auscultated on bilateral anterior lung ya Chest x-ray negative for any evidence of pneumonia, does show hyperinflation, COPD pattern. Smoking history of 1.5 pack/day for 40 years and 3-4 cigars for 10 years (ongoing) Plan: - DuoNebs every 4 hours, DuoNebs every 2 hours as needed - Solu-Medrol 40 mg daily IV - IV azithromycin 500 mg for 3 days - Guaifenesin as needed - Chest physiotherapy - Follow up on sputum culture, MRSA nasal screen - Supplemental oxygen as needed - Smoking cessation education #Heart failure with moderately reduced ejection fraction, EF 45 to 50%, 03/2022 Patient has history of heart failure per chart review, currently not in any acute exacerbation. BNP 476 Echo 03/2022 positive PFO seen with agitated saline, but not with color doppler. Normal LV size and function. Estimated EF is 45-50%. Normal RV size and function. Moderate AI with an eccentric jet directed towards anterior MVL. Mild AV calcifcation. Mild TR. No LA/LATRICE thrombus seen. Plan: - Strict intake and output, daily weight, fluid restriction 1800 cc - Follow up on echocardiogram #Abdominal ventral hernia History of high-grade mechanical SBO status post ex lap, has chronic abdominal ventral hernia. Rx: - Continue to monitor #Substance use disorder #Methamphetamine dependence #THC dependence Patient has history of substance use disorder, admits to daily methamphetamine and THC use. Denies any alcohol and opioid use. UDS (+) for methamphetamine and marijuana Rx: -Ordered urine ethanol level -Monitor for withdrawal #Hypertension #History of TIA Patient has history of hypertension and TIA, denies taking any medication currently. Continue to monitor DVT prophylaxis: Heparin SQ every 12 GI prophylaxis: IV Protonix Diet: Cardiac, fluid restriction 1500 cc Lines: Peripheral IV Code status: Full code Case discussed with Attending Physician Dr. Pichardo and senior resident Dr. Akbar Denise, DO Internal Medicine, PGY-1
--- NOTE | 2025-01-15 13:51 | PC.SS ---
Rashi Walter is a 64 year-old male admitted to [facility] for COPD Exacerbation. SS conducted bedside contact with the patient to complete initial assessment and to discuss discharge planning. Role and reason explained. Patient confirmed demographic information. Patient identifies his mother Chata Walter [phone] as his surrogate decision maker. Pt states he is able to complete all ADL?s independent. Pt is a transient and has a walker and a cane. Pts PCP is [facility]. Pharmacy of choice is [facility]. Discharge options discussed and the pt wishes to return to the community.? Pt will need assistance with transport. No further intervention required at this time, social work nurse would be available to address any further concerns. DC Plan: Community Contact: Chata Waggoner Address: Confirmed on face sheet PCP: [facility]
[2025-01-15 23:33] LABS: Hepatitis A Antibody IgM Non Reactive (Non React); Hepatitis B Core Antibody IgM Non Reactive (Non React); Hepatitis B Surface Antigen Non Reactive (Non React); Hepatitis C Antibody Non Reactive (Non React)
[2025-01-16] VITALS (9 sets, daily range): BP systolic 130–140; BP diastolic 61–91; PULSE 55–92; RESP 16–98; TEMP 36.3–36.5; O2SAT 94–100
[2025-01-16] MEDS: ALBUTEROL/IPRATROPIUM (Duoneb) RT SOL 3 ML NEBU INH ×3 (02:34→10:46)
[2025-01-16 05:46] LABS: Basophils # (Auto) 0.1 Thou/mm3 (0.0-0.2); Basophils % (Auto) 1 % (0-2.5); Eosinophils # (Auto) 0.0 Thou/mm3 (0.0-0.5); Eosinophils % (Auto) 0 % (0-10); Hematocrit 38.3 % (41.0-53.0); Hemoglobin 13.2 g/dL (13.5-16.0); Immature Granulocytes Auto 0.02 Thou/mm3 (0.00-0.00); Lymphocytes # (Auto) 1.4 Thou/mm3 (1.0-4.8); Lymphocytes % (Auto) 18 % (10-50); Mean Corpuscular HGB Conc 34.5 g/dl (31.0-37.0); Mean Corpuscular Hemoglobin 30.4 pg (25.0-35.0); Mean Corpuscular Volume 88 fL (80-100); Monocytes # (Auto) 0.6 Thou/mm3 (0.0-0.8); Monocytes % (Auto) 8 % (0-12); Neutrophils # (Auto) 5.7 Thou/mm3 (1.8-7.7); Neutrophils % (Auto) 73 % (37-80); Nucleated Red Blood Cell # 0.00 Thou/mm3 (0.00-0.00); Nucleated Red Blood Cell % 0 /100 WBC (0); Platelet Count 214 Thou/mm3 (140-440); RDW Standard Deviation 41.9 fL (35.1-43.9); Red Blood Count 4.34 Miln/mm3 (4.50-5.90); White Blood Count 7.8 Thou/mm3 (3.8-10.6)
[2025-01-16 06:17] LABS: Alanine Aminotransferase 9 U/L (10-49); Albumin, Serum 3.8 gm/dL (3.4-4.8); Albumin/Globulin Ratio 1.5 (1.2-2.2); Alkaline Phosphatase 72 U/L (46-116); Anion Gap 9 (7-16); Aspartate Amino Transferase 17 U/L (0-34); BUN/Creatinine Ratio 14 Ratio (12-20); Bilirubin,Total 0.5 mg/dL (0.3-1.2); Blood Urea Nitrogen 11 mg/dL (9-23); Calcium 9.1 mg/dL (8.3-10.6); Calcium (Corrected) 9.3 mg/dL (8.5-10.1); Carbon Dioxide 24.9 mMol/L (20.0-31.0); Chloride 108 mMol/L (98-107); Creatinine (Component) 0.8 mg/dL (0.6-1.3); Estimated Creatinine Clearance 69.4 mL/min (>60); Globulin 2.6 gm/dL (2.3-3.5); Glucose 94 mg/dL (74-106); Magnesium 2.0 mg/dL (1.6-2.6); Osmolality,Calculated 282 (275-295); Potassium 3.6 mMol/L (3.4-5.1); Sodium 142 mMol/L (136-145); Total Protein 6.4 gm/dL (5.7-8.2); eGFR > 60 See Note
[2025-01-16] MEDS: HEPARIN SOD INJ 5000 UNIT/ML VIAL SC (08:29)
[2025-01-16] MEDS: AZITHROMYCIN INJ 500 MG in SODIUM CHLORIDE 0.9% 250 ML 250 ML 250 MG IV (08:29)
[2025-01-16] MEDS: PANTOPRAZOLE 40 MG TABLET PO (08:30)
--- NOTE | 2025-01-16 13:56 | ESDS_ITS ---
Planned Discharge Date 01/16/25 DS: Providers Provider Date of admission: 01/14/25 06:07 Primary care physician: Ricardo Swain MD Admitting Provider: Jesica London DO Attending Provider on Admission: Tan Christina MD Consults: 01/14/25 07:30 Referral Smoking Cessation Counseling Routine Comment: Smoking Cessation Education Needed 01/14/25 10:02 Health Equity Referral - Knowledge Deficit Routine Comment: Positive screening for knowledge deficit needs. Health Equity Referral - Nutrition Routine Comment: Positive screening for nutrition needs. Health Equity Referral - Safety Routine Comment: Positive screening for safety needs. Attending Provider on DC: Bhanu Denise MD Discharging Provider: Bhanu Denise MD DS: Diagnosis Problem List Completed Was Problem List Reviewed/Reconciled?: Yes Hospital Course Hospital Course Hospital course: Summary: Patient is a 64-year-old male with past medical history of Hypertension, COPD, GERD, TIA, SBO status post ex lap and Substance Use Disorder (methamphetamine/THC) who presented to [facility] ED on 01/14/2025 with a chief complaint of shortness of breath. ER: ED Vitals: On presentation in ED blood pressure 185/103, heart rate 84, respiratory rate 22, temp 96.8, O2 sat 99 on room air ED Labs: ED labs pertinent for CBC unremarkable, coags show APTT 36.7 INR PT normal, ABG shows pH 7.36, pCO2 43. CMP pertinent for glucose 121, BNP 476 otherwise unremarkable electrolytes within normal limits. Bedside COVID- negative, influenza AMB negative as well. ED Imaging: Chest x-ray in ED shows hyperinflation, COPD bibasilar bronchitis pattern EKG shows sinus rhythm ED Treatment:Patient was given maintenance fluid NS 100 cc/h, Decadron 10 mg, magnesium 2 g, diltiazem 5 mg, albuterol 10 mg, ipratropium 1 mg breathing treatment in emergency department Hospital: During patient's hospital course, he was treated for his COPD exacerbation with IV steroids, Duoneb breathing treatments, a 3-day course of IV azithromycin, guaifenesin as needed, chest physiotherapy, and supplemental oxygen. He was also placed on fluid restriction to treat his HFrEF. Due to patient's positive UDS for methamphetamines (which patient divulged truthtfully), he was also monitored for possible withdrawal symptoms. By 01/16/25, patient was deemed clinically stabilized and was discharged. Patient is safe to discharge to home. Further discharge instructions below. Instructions: -Albuterol inhaler 2 puffs as needed, no more 6 puff per day for shortness of breath or wheezing -Please stop smoking THC as this may worsen your shortness of breath or wheezing. -Continue home medication -Please follow up with your primary care provider within one week of discharge -If your symptoms worsen, please seek immediate medical attention and return to your nearest emergency room -If you do not have a primary care provider, you may follow up at the [facility] at [address] [place] [address] [address], [place] [address], #COPD exacerbation #COPD #Chronic active smoker #Heart failure with moderately reduced ejection fraction (45-50% in 03/2022) #Abdominal ventral hernia #Substance use disorder #Methamphetamine dependence #THC dependence #Hypertension #History of TIA Status at Discharge Cognitive/Behavioral Status at Discharge: stable Functional Status at Discharge: independent ambulation Overall Status at Discharge: patient is back to baseline Patient's care plan was discussed with my attending, Dr. Christina, and senior resident, Dr. Dutta. Bhanu Denise, DO Internal Medicine, PGY-1 Senior Resident Attestation: I have discussed the case with supervising physician and leadership program intern physician involved in the care of patient. I personally saw and examined patient and discussed the assessment and plan with the entire medical team, including attending. I agree with assessment and plan as documented above. Gwendolyn Dutta MD PGY-2 Internal Medicine Time Spent with Patient Time attestation: Total time spent providing and/or coordinating discharge services: Time spent: Greater than 30 minutes Exam Vital Signs Temp Pulse Resp BP Pulse Ox O2 Del Method O2 Flow Rate 97.3 F 55 L 20 140/91 H 100 Room Air 3 01/16/25 07:27 01/16/25 10:48 01/16/25 10:48 01/16/25 08:29 01/16/25 10:48 01/16/25 07:27 01/14/25 20:00 Narrative Exam General: A&Ox4 and in NAD. HEENT: Normocephalic, atraumatic, mucous membranes moist. On 3 L nasal cannula Heart: Regular rate and rhythm, no murmurs. Lungs: Bilateral wheezing auscultated on anterior lung ya. No crackles or rhonchi appreciated. No accessory muscle use. Abdomen: Large, bulbous ventral hernia noted over umbilicus. Soft, nondistended, nontender, positive bowel sounds. ?No guarding or rebound tenderness. Extremities: No lower extremity edema, cyanosis, or mottling noted. DP pulses 2+ bilaterally. Skin: No rash or ecchymoses. Discharge Plan Plan Patient Disposition: HOME (Self Care) Patient condition on transfer: Stable Care Plan Goals: Instructions: -Albuterol inhaler 2 puffs as needed, no more 6 puff per day for shortness of breath or wheezing -Please stop smoking THC as this may worsen your shortness of breath or wheezing. -Continue home medication -Please follow up with your primary care provider within one week of discharge -If your symptoms worsen, please seek immediate medical attention and return to your nearest emergency room -If you do not have a primary care provider, you may follow up at the [facility] at [address] [place] [address] [address], [place] [address], Prescriptions/Referrals Prescriptions/Med Rec: New albuterol sulfate 90 mcg/actuation aerosol powdr breath activated 2 inh inhalation Q6H PRN (Reason: shortness of breath or wheezing) Qty: 1 0RF tiotropium-olodaterol 2.5-2.5 mcg/actuation mist 2 puff inhalation Q24H 30 Days Qty: 4 0RF Continued lisinopril 10 mg tablet 10 mg PO QDAY 30 Days Qty: 30 0RF omeprazole 20 mg capsule,delayed release(/EC) 20 mg PO QDAY Qty: 20 0RF Referrals: Ricardo Swain MD [Primary Care Provider, Family Practice] Patient/Caregiver Discharge Instructions Education Materials: Asthma and COPD Print Language: Bahraini Stand Alone Forms: Fani Award Info., Patient Portal Info Letter Discharge Order Discharge Orders: Discharge (Routine); Ordered 01/16/25 Ordered By: Wilfred Webber Quality Discharge Quality Measures VTE prophylaxis Attestestation Attmaria alejandraation I discussed with and supervised the resident physician who took care of this patient. I agree with the assessment and discharge plan as above. Patient will follow-up with his primary care provider. Return to the emergency room for recurrent symptoms.
== END 2025-01-16 11:15 | disposition home or self-care (01) | DRG 140 ==
LOC: SERX 06:11 → SERHOLD 06:22 → S3NX 01-16 06:16
PROVIDERS: Admitting Provider Internal Medicine; Emergency Provider Emergency Medicine; PCP Family Medicine; Visit Provider Internal Medicine
DX: J44.1 Chronic obstructive pulmonary disease with (acute) exacerbation (principal); K21.9 Gastro-esophageal reflux disease without esophagitis; Z86.73 Personal history of transient ischemic attack (TIA), and cerebral infarction without residual deficits; Z59.00 Homelessness unspecified; F17.200 Nicotine dependence, unspecified, uncomplicated; I11.0 Hypertensive heart disease with heart failure; I50.32 Chronic diastolic (congestive) heart failure; K43.9 Ventral hernia without obstruction or gangrene; F15.20 Other stimulant dependence, uncomplicated; F12.20 Cannabis dependence, uncomplicated; Z91.148 Patient's other noncompliance with medication regimen for other reason; Z71.6 Tobacco abuse counseling
CPT/HCPCS: 36415; 36600; 71045; 80053; 80074; 80307; 80320; 81001; 82803; 83735; 83880; 84100; 85025; 85610; 85730; 86703; 87081; 87205; 87502; 87811; 93005; 93225; 93306; 94640; 94644; 94664; 94667; 96365; 96366; 96372; 96375; 99285; A9270; J0456; J1100; J1644; J2470; J2919; J3475; J3490; J7030; J7050; G0480

== ENCOUNTER 2025-02-03 03:18 | Emergency (ER) | payer MEDICAID, SELFPAY ==
--- NOTE | 2025-02-03 03:19 | PD.EDSOB ---
ED SOB =RME/HPI General Chief Complaint: Shortness of Breath/Dyspnea Stated Complaint: SOB Time Seen by Provider: 02/03/25 03:19 Arrival date/time: 02/03/25 03:18 RME / HPI RME / HPI Narrative: Dr. Valdovinos?s Main ED Evaluation: 64yo male with a history of COPD, HTN, GERD, TIA BIBA from home care home presents to the ED for a chief complaint of shortness of breath x 1 day. Patient reports associated worsening cough. EMS administered an albuterol treatment en route with some improvement. Patient does still smoke cigarettes, but endorses he is trying to quit. Patient denies any fever, chills, or any other associated symptoms. Related Data Previous Rx's ?Medication ?Instructions ?Recorded omeprazole 20 mg capsule,delayed 20 mg PO QDAY #20 caps 06/26/22 release albuterol sulfate 90 mcg/actuation 2 inh inhalation Q6H PRN shortness 01/16/25 breath activated powder inhaler of breath or wheezing #1 ea lisinopril 10 mg tablet 10 mg PO QDAY 30 days #30 tabs 01/16/25 tiotropium 2.5 mcg-olodaterol 2.5 2 puff inhalation Q24H COPD 1 01/16/25 mcg/actuation mist for inhalation month #4 grams albuterol sulfate 90 mcg/actuation 2 inh inhalation Q4H PRN shortness 02/03/25 breath activated powder inhaler of breath or wheezing #1 ea doxycycline hyclate 100 mg capsule 100 mg PO BID #14 caps 02/03/25 prednisone 50 mg tablet 50 mg PO QDAY #7 tabs 02/03/25 Allergies Allergy/AdvReac Type Severity Reaction Status Date / Time Penicillins Allergy Severe Swelling Verified 02/03/25 03:20 of Lip/Tongue/Throat Review of Systems Review of Systems Systems Reviewed: All systems reviewed, normal except as documented ED Exam Narrative Physical exam: Generally patient is alert somewhat dyspneic and tachypneic, lungs show distant breath sounds bilaterally without crackles but wheezes are present in all lung ya, extremities show no edema, heart regular rate and rhythm, neurologic exam shows [place] Coma Scale 15, skin is warm pale and dry without rash Course Course Course Narrative: CXR is ordered for determining the etiology of shortness of breath. Quality Measures none Orders Category Date Time Status Bedside COVID-19 Antigen Test NOW Care 02/03/25 03:20 Active Bedside Influenza A&B Antigen Test NOW Care 02/03/25 03:20 Active EKG (ED ONLY) *Do not use* NOW Care 02/03/25 03:20 Completed Insert IV NOW Care 02/03/25 03:25 Active EKG (ED Only) Stat Exams 02/03/25 03:20 Draft XR chest 1V portable Stat Exams 02/03/25 03:20 Taken BNP [B-Type Natriuretic Peptide] Stat Lab 02/03/25 03:27 Completed Blood Culture (Lab) Stat Lab 02/03/25 03:27 Received CBC Stat Lab 02/03/25 03:27 Completed CMP [Comprehensive Metabolic Panel] Stat Lab 02/03/25 03:27 Completed Influenza A & B Rapid Panel Stat Lab 02/03/25 03:20 Completed Lactic Acid [Lactate (Lactic Acid)] Stat Lab 02/03/25 03:27 Completed Troponin I Stat Lab 02/03/25 03:27 Completed VBG [Venous Blood Gas] Stat Lab 02/03/25 03:27 Completed ALBUTEROL RT 0.5ml [Proventil Rt 0.5ml] Med 02/03/25 03:19 Discontinued 15 mg INH X1 ONE Ipratropium Dodge Rt Shameka [Atrovent Rt Shameka] Med 02/03/25 03:19 Discontinued 1 mg INH X1 ONE MethylPREDNISolone. [SoluMEDROL Inj] Med 02/03/25 03:19 Discontinued 125 mg IV X1 ONE MethylPREDNISolone.* [SoluMEDROL Inj] Med 02/03/25 03:38 Discontinued 125 mg IVP X1 ONE Sodium Chloride Rt Shameka 0.9% [NS Rt Shameka 0.9%] Med 02/03/25 03:19 Active 3 ml INH PRN PRN Vital Signs Vital signs: Vital Signs Temperature 97.6 F 02/03/25 03:30 Pulse Rate 82 02/03/25 03:30 Respiratory Rate 18 02/03/25 03:30 Blood Pressure 181/107 H 02/03/25 03:30 Pulse Oximetry (%) 96 02/03/25 03:30 Oxygen Delivery Method Room Air 02/03/25 03:30 Shortness of Breath / Dyspnea MDM Narrative MDM Narrative:: Scribe Attestation: 02/03/25 Ivonne Junior am scribing for and in the presence of Dr. Valdovinos. Patient received albuterol 15 mg and Atrovent 1 mg Med-Neb treatment over 1 hour. Blood pressure is 181/91. Cardiac workup was unremarkable. EKG was nonischemic with normal sinus rhythm at rate of 82 with a sinus arrhythmia. Chest x-ray shows hyperinflation compatible with COPD. No infiltrative process. Patient has no fever or leukocytosis. Patient had recently had an echocardiogram showing an ejection fraction of 45 to 50%. Patient received Solu-Medrol 125 mg IV. Patient stable for discharge. He has been complaining of cough with mucus production. Patient will be started on doxycycline to be taken as prescribed with prednisone and albuterol inhaler. Follow-up with his doctor. Return to ER as needed or if condition worsens. Patient data External records reviewed:: [facility] previous records (Per chart review, patient was admitted here on 01/14/25 for accelerated hypertension.) and EMS form Clinical information provided by:: patient and EMS Social determinants that could affect healthcare access:: substance use Patient has the following chronic illnesses:: COPD, HTN, GERD, TIA How is presenting disease/condition affected by chronic disease/condition?: exacerbated by Evaluation data The following diagnostics were reviewed and interpreted by me:: lab results, radiology exam(s) and EKG tracing(s) Lab and/or radiology exams considered but not ordered:: none Interpretation Summary: See [facility] Medications / Prescriptions Medications or Prescriptions considered but not ordered:: none Medication administrations:: Medication Administration History Sodium Chloride (Sodium Chloride Rt Shameka 0.9% 3 Ml Nebu) 3 ml INH PRN PRN PRN Reason: SOLN Stop: 03/05/25 03:18 Last Admin: 02/03/25 03:47 Dose: 3 ml Documented By: ANDRE Discontinued Medications Albuterol (Albuterol Rt 2.5 Mg/0.5 Ml Nebu) 15 mg INH X1 ONE Stop: 02/03/25 03:20 Last Admin: 02/03/25 03:45 Dose: 15 mg Documented By: ANDRE Ipratropium Dodge (Ipratropium Rt 0.5 Mg/ 2.5 Ml Nebu) 1 mg INH X1 ONE Stop: 02/03/25 03:20 Last Admin: 02/03/25 03:46 Dose: 1 mg Documented By: ANDRE Methylprednisolone Sodium Succinate (Methylprednisolone Sod 500 Mg/8 Ml Vial) 125 mg IV X1 ONE Stop: 02/03/25 03:20 Last Admin: 02/03/25 03:39 Dose: Not Given Documented By: VEGA Non-Admin Reason: Cancelled by Provider Methylprednisolone Sodium Succinate (Methylprednisolone Sod Succ 62.5 Mg/Ml 2ml Vial) 125 mg IVP X1 ONE Stop: 02/03/25 03:39 Last Admin: 02/03/25 03:43 Dose: 125 mg Documented By: VEGA see above Consultations Consultation(s) initiated? (list below): No Diagnosis Shortness of Breath Differential Diagnosis: other (See MDM) Most likely diagnosis given after review of the tests above:: see clinical impression below Admission Indicated Admission indicated?: not indicated Admission Request Was there a request for admission?: No Disposition Plan Disposition Plan: Discharge Discharge Attestation Discharge Attestation: The patient and all family members were given an opportunity to ask questions and understood the discharge instructions. Discharge instructions specifically effects, indications for sooner follow up or return to the emergency department, and the expected course of current diagnosis. Patient condition: Stable Critical Care Time Critical Care Time Critical Care Time: Yes Total Critical Care Time (min.): 35 Attestation: Excluding other billable procedures Discharge Plan Plan Patient Disposition: HOME (Self Care) Prescriptions/Referrals Prescriptions/Med Rec: New prednisone 50 mg tablet 50 mg PO QDAY Qty: 7 0RF doxycycline hyclate 100 mg capsule 100 mg PO BID Qty: 14 0RF albuterol sulfate 90 mcg/actuation aerosol powdr breath activated 2 inh inhalation Q4H PRN (Reason: shortness of breath or wheezing) Qty: 1 0RF No Action albuterol sulfate 90 mcg/actuation aerosol powdr breath activated 2 inh inhalation Q6H PRN (Reason: shortness of breath or wheezing) Qty: 1 0RF lisinopril 10 mg tablet 10 mg PO QDAY 30 Days Qty: 30 0RF tiotropium-olodaterol 2.5-2.5 mcg/actuation mist 2 puff inhalation Q24H 30 Days Qty: 4 0RF omeprazole 20 mg capsule,delayed release(DR/EC) 20 mg PO QDAY Qty: 20 0RF Problem List Clinical Impression: COPD exacerbation, Tobacco abuse Patient/Caregiver Discharge Instructions Education Materials: ED COPD Flare Additional Instructions: Medication as prescribed. Continue to decrease smoking. Follow-up with your doctor. Return to ER as needed or if condition worsens. Print Language: Congolese Stand Alone Forms: [employer] Award Info., Patient Portal Info Letter
[2025-02-03 03:20] VITALS: PULSE 70; RESP 20; O2SAT 95; BMI 16.9
--- NOTE | 2025-02-03 03:20 | XR_ITS ---
EXAMINATION: AP chest single view TECHNIQUE: 1. AP portable upright chest single view Date and time: February 03, 2025, 0331 hours, comparison January 14, 2025 INDICATIONS: Chest pain shortness of breath today FINDINGS: Moderate hyperexpansion Normal heart size Ectatic thoracic aorta. No pneumonia or pulmonary edema Prominent osteopenia IMPRESSION: COPD No interval pneumonia or pulmonary edema
--- NOTE | 2025-02-03 03:20 | EKG_ITS ---
[facility] (Formerly [facility]) Test Date: 2025-02-03 Pat Name: ANTONIO JARAMILLO Department: Room: - Gender: Male [employer]: : 1960 Requested By: Jonathan Dalton Order Number: [id number] Reading MD: Jonathan Dalton Measurements Intervals [place] Rate: 82 P: 68 W[place]: 156 QRS: 58 QRSD: 102 T: 81 QT: 403 QTc: 473 Interpretive Statements SINUS RHYTHM WITH MARKED SINUS ARRHYTHMIA Compared to ECG 01/14/2025 04:39:04 Atrial fibrillation no longer present ST (T wave) deviation no longer present /store/[id number].pdf
[2025-02-03 03:30] VITALS: BP 181/107; PULSE 82; RESP 18; TEMP 36.4; O2SAT 96
[2025-02-03 03:43] LABS: Base Excess, Venous 2 (-3-3); O2 Saturation, Venous 57 % (96-97); PCO2, Venous 51 mmHg (36-56); PO2, Venous 41 mmHg (15-58); pH, Venous 7.36 (7.33-7.66)
[2025-02-03] MEDS: MethylPREDNISolone SOD SUCC 62.5 MG/ML 2ML VIAL 125 MG IVP (03:43)
[2025-02-03 03:44] LABS: Lactate (Lactic Acid) 1.1 mMol/L (0.4-2.0)
[2025-02-03 03:45] VITALS: PULSE 90
[2025-02-03] MEDS: ALBUTEROL RT 2.5 MG/0.5 ML NEBU 15 MG INH (03:45)
[2025-02-03] MEDS: IPRATROPIUM RT 0.5 MG/ 2.5 ML NEBU 1 MG INH (03:46)
[2025-02-03] MEDS: SODIUM CHLORIDE RT SOL 0.9% 3 ML NEBU INH (03:47)
[2025-02-03 03:53] VITALS: PULSE 80; RESP 17; O2SAT 100
[2025-02-03 04:09] LABS: Influenza A Ag Negative; Influenza B Ag Negative
[2025-02-03 04:13] LABS: B-Type Natriuretic Peptide 424 pg/mL (0-100)
[2025-02-03 04:14] LABS: Alanine Aminotransferase 13 U/L (10-49); Albumin, Serum 4.3 gm/dL (3.4-4.8); Albumin/Globulin Ratio 1.7 (1.2-2.2); Alkaline Phosphatase 86 U/L (46-116); Anion Gap 7 (7-16); Aspartate Amino Transferase 23 U/L (0-34); BUN/Creatinine Ratio 11 Ratio (12-20); Bilirubin,Total 0.7 mg/dL (0.3-1.2); Blood Urea Nitrogen 11 mg/dL (9-23); Calcium 9.3 mg/dL (8.3-10.6); Calcium (Corrected) 9.3 mg/dL (8.5-10.1); Carbon Dioxide 29.9 mMol/L (20.0-31.0); Chloride 106 mMol/L (98-107); Creatinine (Component) 1.0 mg/dL (0.6-1.3); Estimated Creatinine Clearance 55.8 mL/min (>60); Globulin 2.6 gm/dL (2.3-3.5); Glucose 111 mg/dL (74-106); Osmolality,Calculated 285 (275-295); Potassium 4.0 mMol/L (3.4-5.1); Sodium 143 mMol/L (136-145); Total Protein 6.9 gm/dL (5.7-8.2); Troponin I 0.032 ng/mL (0.0-0.045); eGFR > 60 See Note
[2025-02-03 04:30] LABS: Basophils # (Auto) 0.1 Thou/mm3 (0.0-0.2); Basophils % (Auto) 2 % (0-2.5); Eosinophils # (Auto) 0.6 Thou/mm3 (0.0-0.5); Eosinophils % (Auto) 8 % (0-10); Hematocrit 44.9 % (41.0-53.0); Hemoglobin 14.7 g/dL (13.5-16.0); Immature Granulocytes Auto 0.02 Thou/mm3 (0.00-0.00); Lymphocytes # (Auto) 2.2 Thou/mm3 (1.0-4.8); Lymphocytes % (Auto) 27 % (10-50); Mean Corpuscular HGB Conc 32.7 g/dl (31.0-37.0); Mean Corpuscular Hemoglobin 29.4 pg (25.0-35.0); Mean Corpuscular Volume 90 fL (80-100); Monocytes # (Auto) 0.6 Thou/mm3 (0.0-0.8); Monocytes % (Auto) 7 % (0-12); Neutrophils # (Auto) 4.5 Thou/mm3 (1.8-7.7); Neutrophils % (Auto) 56 % (37-80); Nucleated Red Blood Cell # 0.00 Thou/mm3 (0.00-0.00); Nucleated Red Blood Cell % 0 /100 WBC (0); Platelet Count 266 Thou/mm3 (140-440); RDW Standard Deviation 43.4 fL (35.1-43.9); Red Blood Count 5.00 Miln/mm3 (4.50-5.90); White Blood Count 8.0 Thou/mm3 (3.8-10.6)
[2025-02-03 04:49] VITALS: BP 149/81; PULSE 79; RESP 15; O2SAT 100
== END 2025-02-03 06:52 | disposition home or self-care (01) ==
PROVIDERS: Emergency Provider Emergency Medicine
DX: J44.1 Chronic obstructive pulmonary disease with (acute) exacerbation (principal); F17.210 Nicotine dependence, cigarettes, uncomplicated; I10 Essential (primary) hypertension; Z86.73 Personal history of transient ischemic attack (TIA), and cerebral infarction without residual deficits
CPT/HCPCS: 36415; 71045; 80053; 82803; 83605; 83880; 84484; 85025; 87040; 87502; 87811; 93005; 96374; 99284; J2919; J7644; J7611